=== PATIENT | male | born 1970 | race Two or more races ===

== ENCOUNTER 2023-06-25 17:04 | Emergency (ER) | payer OTHER ==
[~2023-06-25] VITALS: Ht 185.4 cm; Wt 97.5 kg
[~2023-06-25 17:04] MED LIST: CEFADROXIL500 MG PO; HYDRALAZINE HCL25 MG; LASIX20 MG; NEURONTIN300 MG
[2023-06-25] MEDS ORDERED: BACTRIM DS TAB1 EACH PO (22:30)
== END 2023-06-25 22:44 | disposition home or self-care (01) ==
LOC: ER 17:04
DX: R33.8 Other retention of urine (principal); N31.9 Neuromuscular dysfunction of bladder, unspecified; I10 Essential (primary) hypertension

== ENCOUNTER 2024-12-04 18:19 | Emergency (ER) | payer OTHER ==
[~2024-12-04] VITALS: Ht 188 cm; Wt 86.2 kg
[~2024-12-04 18:19] MED LIST changes: +BACTRIM DS TAB1 EACH PO
[2024-12-04 19:35] LABS: URINE APPEARANCE Cloudy; URINE BILIRRUBIN Negative (NEGATIVE); URINE BLOOD Large; URINE COLOR Yellow; URINE GLUCOSE Negative (NEGATIVE); URINE KETONE Negative (NEGATIVE); URINE LEUKOCYTE Large; URINE NITRATE Positive; URINE UROBILINOGEN 0.2 E.U./dl
[2024-12-04 19:39] LABS: URINE CAST 7.65 uL (0.0-1.40); URINE EPITHELIAL CELLS 6.3 uL (0.0-38.8); URINE RBC 29.4 uL (0.0-20.8); URINE WBC 707.8 uL (0.0-23.2)
[2024-12-04 19:45] LABS: HEMATOCRIT 42.7 % (39.0-48.0); MEAN CELL VOLUME 81.5 fL (80.0-100.00); MEAN CORPUSCULAR HEMOGLOBIN 26.7 pg (27.00-32.0); MEAN CORPUSCULAR HGB CONC 32.8 g/dl (32.0-36.0); PLATELET COUNT 246 K/uL (150-450); RED BLOOD COUNT 5.24 M/uL (4.00-6.00); RED CELL DISTRIBUTION WIDTH 13.8 % (11.5-14.5)
[2024-12-04 21:47] LABS: URINE PROTEIN 100 (NEGATIVE)
[2024-12-04 21:48] LABS: URINE BACTERIA > 9821.5 uL (0.0-1933); URINE CRYSTALS MANY /HPF
== END 2024-12-04 22:45 | disposition home or self-care (01) ==
LOC: ER 18:21
DX: R53.81 Other malaise (principal); N39.0 Urinary tract infection, site not specified; Z20.822 Contact with and (suspected) exposure to COVID-19

== ENCOUNTER 2025-10-13 13:21 | Emergency (ER) | payer OTHER ==
[~2025-10-13] VITALS: Ht 185.4 cm; Wt 81.6 kg
[2025-10-13] MEDS ORDERED: CEFTRIAXONE SODIUM 1,000 MG VIAL IV ONE (16:15)
[2025-10-13] MEDS ORDERED: CEFTRIAXONE SODIUM 1,000 MG VIAL ONE (16:17)
[2025-10-13 16:40] LABS: BASO % 0.7 % (0.1-1.2); EOS # 0.18 (0.04-0.54); EOS % 2.7 % (0.7-7.0); LYMPH # 1.36 (1.18-3.74); LYMPH % 20.3 % (19.3-53.1); MEAN PLATELET VOLUME 10.20 fl (9.4-12.4); MONO # 0.46 (0.24-0.82); MONO % 6.9 % (4.7-12.5); NEUT # 4.65 (1.56-6.13); NEUT % 69.4 % (34.0-71.1); RED CELL DISTRIBUTION WIDTH 12.5 % (11.6-14.4)
[2025-10-13 17:15] LABS: BUN CREA RATIO 18.0 (7.0-25.0); CREATININE SERUM 0.98 mg/dL (0.70-1.30); GFR 79.7; GLUCOSE FASTING 89.0 mg/dL (65-100); OSMOLALITY SERUM 284.0 MOSM/KG (275-295)
[2025-10-13 17:27] LABS: ERYTHROCYTE SEDIMENTATION RATE 18 mm/hr (0-20)
[2025-10-13] MEDS ORDERED: BACTRIM DS TAB1 EACH PO (18:15)
[2025-10-13] MEDS ORDERED: INTESTINEX680 M1 PO (18:28)
[2025-10-13] MEDS ORDERED: AMOX-CLAV 875-1 EAC1 PO (18:28)
== END 2025-10-13 19:09 | disposition home or self-care (01) ==
LOC: ER 13:22
PROVIDERS: General Practice
DX: L98.429 Non-pressure chronic ulcer of back with unspecified severity (principal); S20.419A Abrasion of unspecified back wall of thorax, initial encounter